=== PATIENT | female | born 1960 | race Caucasian/White ===

== ENCOUNTER 2024-07-17 18:13 | Emergency (ER) | payer OTHER ==
[2024-07-17 18:33] VITALS: BP 148/80; O2SAT 95
[2024-07-17 18:43] LABS: BASOPHILS # (AUTO) 0.1 10^3/uL (0.0-0.1); BASOPHILS % (AUTO) 1.5 %; EOSINOPHILS # (AUTO) 0.2 10^3/uL (0.0-0.7); EOSINOPHILS % (AUTO) 2.6 %; HCT - HEMATOCRIT 39.1 % (37.0-47.0); HGB - HEMOGLOBIN 12.9 g/dL (12.0-16.0); LYMPHOCYTES % (AUTO) 32.9 %; MEAN CORPUSCULAR HEMOGLOBIN 30.8 pg (27.0-31.0); MEAN CORPUSCULAR VOLUME 93.3 fL (81.0-99.0); MEAN PLATELET VOLUME 10.1 fL (7.9-10.8); MONOCYTES # (AUTO) 0.4 10^3/uL (0.0-1.0); MONOCYTES % (AUTO) 6.5 %; NEUTROPHILS # (AUTO) 3.4 10^3/uL (1.5-6.6); NEUTROPHILS % (AUTO) 56.3 %; PLT - PLATELET COUNT 244 10^3/uL (130-450); RED BLOOD COUNT 4.19 10^6/uL (4.20-5.40)
--- NOTE | 2024-07-17 18:48 | XRAY Report ---
PROCEDURE: Chest 1V INDICATIONS: Chest pain TECHNIQUE: One view of the chest was acquired. COMPARISON: None. FINDINGS: Surgical changes and devices: None. Lungs and pleura: No pleural effusions or pneumothorax. Lungs are clear. Mediastinum: Mediastinal contours appear normal. Heart size is normal. Bones and chest wall: No suspicious bony lesions. Overlying soft tissues appear unremarkable. IMPRESSION: No acute cardiopulmonary process. Reviewed by: Erik Humphreys MD on 07/17/2024 6:47 PM PDT Approved by: Erik Humphreys MD on 07/17/2024 6:47 PM PDT Station ID: [id number]
[2024-07-17 19:02] LABS: TROPONIN I HIGH SENSITIVITY 3.4 ng/L (2.3-14.8)
[2024-07-17 19:05] LABS: ALBUMIN 4.5 g/dL (3.2-5.5); ALBUMIN/GLOBULIN RATIO 1.9 (1.0-2.2); BILIRUBIN,TOTAL 0.5 mg/dL (0.2-1.0); CALCIUM 9.5 mg/dL (8.5-10.3); CREATININE 0.7 mg/dL (0.6-1.3); TOTAL PROTEIN 6.9 g/dL (6.4-8.9)
--- NOTE | 2024-07-17 19:20 | ED Physician Documentation ---
History of Present Illness - Stated complaint Stated Complaint: DIZZY/NAUSEA - Chief complaint Chief Complaint: Cardiac - History obtained from History obtained from: Patient - Additonal information Additional information: 63-year-old female with history of hypertension, hypothyroidism, anxiety presents by private vehicle from home for approximately 6 hours of lightheaded sensation and nausea. Patient states that she woke up from a nap feeling lightheaded like she was going to pass out. She states that she did not have very much to eat or drink today. Also reports that her blood pressure has been very variable over the last several weeks. She is actively working with her primary care doctor on her blood pressure issues and has an appointment on Friday for follow-up. Since arriving to the emergency department patient also complained about a very low-grade generalized headache as well as right shoulder pain. No medications taken for any of her symptoms prior to arrival. Review of Systems Constitutional: denies: Fever, Chills Ears: denies: Loss of hearing, Ear pain, Drainage/discharge Cardiac: denies: Chest pain / pressure, Palpitations, Calf pain Respiratory: denies: Dyspnea, Cough, Wheezing GI: reports: Nausea. denies: Abdominal Pain, Abdominal Swelling, Vomiting, Constipation, Diarrhea Skin: denies: Rash, Lesions, Abrasion (s) Musculoskeletal: reports: Joint pain (R shoulder). denies: Neck pain, Back pain, Extremity pain Neurologic: reports: Headache (low grade, generalized). denies: Generalized weakness, Focal weakness, Numbness, Head injury PD PAST MEDICAL HISTORY - Past Medical History Past Medical History: Yes Cardiovascular: Hypertension, High cholesterol Endocrine/Autoimmune: HyPOthyroidism Psych: Depression, Anxiety Musculoskeletal: Other - Past Surgical History Past Surgical History: Yes Ortho: Rotator cuff repair /[employer]: section HEENT: Tonsil/Adenoidectomy - Present Medications Home Medications: Ambulatory Orders Medication Instructions Recorded Confirmed Aspirin [Aspirin EC] 81 mg PO DAILY 07/17/24 07/17/24 Atorvastatin [Lipitor] 40 mg PO QPM 07/17/24 07/17/24 Gabapentin [Neurontin] 300 mg PO TID 07/17/24 07/17/24 LORazepam [Lorazepam] 0.5 mg PO DAILY PRN 07/17/24 07/17/24 Levothyroxine [Synthroid] 50 mcg PO QDAC 07/17/24 07/17/24 Losartan [Cozaar] 50 mg PO DAILY 07/17/24 07/17/24 Ondansetron Odt [Zofran] 4 mg TL Q6H PRN #30 tablet 07/17/24 Sertraline [Zoloft] 50 mg PO DAILY 07/17/24 07/17/24 - Allergies Allergies/Adverse Reactions: Allergies Allergy/AdvReac Type Severity Reaction Status Date / Time No Known Drug Allergies Allergy Verified 07/17/24 18:24 - Social History Does the pt smoke?: No Smoking Status: Never smoker Does the pt drink ETOH?: Yes Substance Use and Type: Marijuana - Immunizations Immunizations are current?: Yes PD ED PE NORMAL - Vitals Vital signs reviewed: Yes - General General: Alert and oriented X 3, No acute distress, Well developed/nourished - Neck Neck: Supple, no meningeal sign, No bony TTP - Cardiac Cardiac: RRR, Strong equal pulses - Respiratory Respiratory: No respiratory distress, Clear bilaterally - Abdomen Abdomen: Soft, Non tender, Non distended, No organomegaly - Derm Derm: Normal color, Warm and dry, No rash - Extremities Extremities: No deformity, No tenderness to palpate, Normal ROM s pain, No edema - Neuro Neuro: Alert and oriented X 3, 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, No motor deficit, Normal speech - Psych Psych: Normal mood, Normal affect Results - Vitals Vitals: Vital Signs - 24 hr 07/17/24 18:20 Temperature 36.6 C Heart Rate 59 L Respiratory 16 Rate Blood Pressure 148/80 H O2 Saturation 95 Oxygen O2 Source Room air - Labs Labs: Laboratory Tests 07/17/24 07/17/24 07/17/24 18:37 18:37 19:38 WBC 6.0 RBC 4.19 L Hgb 12.9 Hct 39.1 MCV 93.3 MCH 30.8 MCHC 33.0 RDW 13.0 Plt Count 244 MPV 10.1 Neut # (Auto) 3.4 Lymph # (Auto) 2.0 [place] # (Auto) 0.4 Eos # (Auto) 0.2 Baso # (Auto) 0.1 Absolute Nucleated RBC 0.00 Nucleated RBC % 0.0 Sodium 138 Potassium 4.0 Chloride 105 Carbon Dioxide 26 Anion Gap 7.0 BUN 15 Creatinine 0.7 Estimated GFR (MDRD) 84 L Glucose 85 Calcium 9.5 Total Bilirubin 0.5 AST 22 ALT 15 Alkaline Phosphatase 55 Troponin I High Sens 3.4 Total Protein 6.9 Albumin 4.5 Globulin 2.4 Albumin/Globulin Ratio 1.9 Lipase 27 Urine Color YELLOW Urine Clarity CLEAR Urine pH 6.0 Ur Specific [place] <=1.005 Urine Protein NEGATIVE Urine Glucose (UA) NEGATIVE Urine Ketones NEGATIVE Urine Occult Blood TRACE-INTA Urine Nitrite NEGATIVE Urine Bilirubin NEGATIVE Urine Urobilinogen 0.2 (NORMAL) Ur Leukocyte Esterase TRACE H Urine RBC 0-5 Urine WBC 0-3 Ur Squamous Epith Cells NONE SEEN Urine Bacteria Few Ur Microscopic Review INDICATED Urine Culture Comments INDICATED PD Medical Decision Making - ED course Complexity details: reviewed old records, reviewed results, re-evaluated patient, considered differential, d/w patient ED course: Lightheaded sensation. Review of any form shows that patient has been seen several times at different ERs over the last 12 months for nonspecific di zziness. Patient states that this is the same as when she has been seen in the past and no cause has been identified. Patient is concerned that it may either be related to her thyroid or to her varying blood pressure. Patient is actively being treated by her primary care doctor for these concerns and has an appointment in 2 days with her primary care doctor. No physical exam abnormalities, abdomen soft and nontender. Hemodynamically stable. Laboratory work is reviewed, no significant abnormalities identified. EKG normal sinus rhythm without arrhythmia or findings of ischemia. Troponin negative. Since patient has had ongoing symptoms for longer than 4 hours no need for repeat troponin at this time. Patient received IV fluids, Zofran. She now states that she is hungry. She was able to tolerate po and reported feeling improved. Patient advised to have ongoing discussion with her primary care doctor about her symptoms. Nausea medication sent to pharmacy of choice. Departure - Departure Disposition: Home, Self Care Clinical Impression: Nausea, Lightheaded Condition: Stable Instructions: ED Dizziness [facility] Prescriptions: Ondansetron Odt [Zofran] 4 mg TL Q6H PRN #30 tablet PRN Reason: Nausea / Vomiting Comments: Your laboratory work, EKG, chest x-ray were all reassuring today. Follow-up as scheduled with your primary care doctor on Friday. An antinausea medication has been sent to the [facility] in [place]. Make sure that you eat a healthy diet and drink plenty of hydrating fluids. Forms: PCP List Discharge Date/Time: 07/17/24 21:09
[2024-07-17] MEDS: SODIUM CHLORIDE 0.9% 1,000 ML IV STA (19:26)
[2024-07-17] MEDS: ONDANSETRON 4 MG/2 ML VIAL IVP STA (19:26)
[2024-07-17] MEDS: ACETAMINOPHEN 500 MG TABLET PO STA (19:36)
[2024-07-17 19:43] LABS: BILIRUBIN,URINE NEGATIVE (NEGATIVE); GLUCOSE, URINE (UA) NEGATIVE (NEGATIVE); KETONES,URINE (UA) NEGATIVE (NEGATIVE); LEUKOCYTE ESTERASE, URINE TRACE (NEGATIVE); NITRITE,URINE NEGATIVE (NEGATIVE); OCCULT BLOOD,URINE TRACE-INTA (NEGATIVE); PROTEIN,URINE NEGATIVE (NEGATIVE); UROBILINOGEN,URINE 0.2 (NORMAL) E.U./dL (NORMAL)
[2024-07-17 19:49] LABS: CLARITY,URINE CLEAR (CLEAR)
[2024-07-17 19:54] LABS: BACTERIA,URINE Few /HPF (None Seen); RBC,URINE 0-5 /HPF (0-5); SQUAMOUS EPITHELIAL CELL,UR NONE SEEN (<= Few); WBC,URINE 0-3 /HPF (0-5)
== END 2024-07-17 21:09 | disposition home or self-care (01) ==
LOC: ED 18:13
DX: R42 Dizziness and giddiness (principal); R11.0 Nausea; R51.9 Headache, unspecified
CPT/HCPCS: 36415; 71045; 80053; 81001; 83690; 84484; 85025; 87086; 93005; 96374; 99284; A9270; 81003